=== PATIENT | male | born 1935 | race Caucasian/White ===

== ENCOUNTER 2017-09-01 18:50 | Emergency (ER) | payer MEDICARE, BC ==
[2017-09-01 18:59] VITALS: RESP 18
[2017-09-01] MEDS ORDERED: SODIUM CHLORIDE 0.9% 1,000 ML IV STA ×2 (19:03)
--- NOTE | 2017-09-01 19:03 | ED ---
General Adult HPI - General Chief complaint: Neuro Symptoms/Deficit Stated complaint: Sent by [facility] for poss CVA Time Seen by Provider: 09/01/17 19:02 Source: patient, RN notes reviewed, old records reviewed Mode of arrival: ambulatory Limitations: no limitations - History of Present Illness Initial comments: This is a 81-year-old male to the ER for evaluation. He has a for evaluation regards to headache. patient is sent in after abnormal outpatient studies. states headache for 5 days. no nausea no vomiting. denies any neurological deficit. no prior evaluation for, family doctor did order mr secondary to symptoms. Patient has history of CAD and high cholesterol. Denies any trauma - Related Data Home Medications Medication Instructions Recorded Confirmed Acetaminophen Tab [Tylenol] 650 mg PO Q6H PRN 09/01/17 09/01/17 Aspirin EC [Ecotrin Low Dose] 81 mg PO DAILY 09/01/17 09/01/17 Citalopram Hydrobromide [CeleXA] 10 mg PO DAILY 09/01/17 09/01/17 Esomeprazole Magnesium [NexIUM] 40 mg PO DAILY 09/01/17 09/01/17 diphenhydrAMINE HCL [Benadryl] 25 mg PO Q6H PRN 09/01/17 09/01/17 Allergies Allergy/AdvReac Type Severity Reaction Status Date / Time Sulfa (Sulfonamide Allergy Rash/Hives Verified 09/01/17 19:25 Antibiotics) sulfamethoxazole Allergy Rash/Hives Verified 09/01/17 19:25 [From Bactrim] trimethoprim [From Bactrim] Allergy Rash/Hives Verified 09/01/17 19:25 Review of Systems ROS Statement: Those systems with pertinent positive or pertinent negative responses have been documented in the HPI. ROS Other: All systems not noted in ROS Statement are negative. Past Medical History Past Medical History: Coronary Artery Disease (CAD), GERD/Reflux, Hyperlipidemia History of Any Multi-Drug Resistant Organisms: None Reported Past Surgical History: Cholecystectomy, Coronary Bypass/CABG Additional Past Surgical History / Comment(s): CABG- 2000?, BILAT CATARACTS, SINUS , HEMORRHOIDECTOMY, LOWER BACK SX , COLONOSCOPY. EGD Past Anesthesia/Blood Transfusion Reactions: No Reported Reaction Past Psychological History: No Psychological Hx Reported Smoking Status: Former smoker Past Alcohol Use History: Occasional Past Drug Use History: None Reported - Past Family History Mother Family Medical History: No Reported History General Exam Limitations: no limitations General appearance: alert, in no apparent distress Head exam: Present: atraumatic, normocephalic, normal inspection Eye exam: Present: normal appearance, PERRL, EOMI. Absent: scleral icterus, conjunctival injection, periorbital swelling ENT exam: Present: normal exam, mucous membranes moist Neck exam: Present: normal inspection. Absent: tenderness, meningismus, lymphadenopathy Respiratory exam: Present: normal lung sounds bilaterally. Absent: respiratory distress, wheezes, rales, rhonchi, stridor Cardiovascular Exam: Present: regular rate, normal rhythm, normal heart sounds. Absent: systolic murmur, diastolic murmur, rubs, gallop, clicks GI/Abdominal exam: Present: soft, normal bowel sounds. Absent: distended, tenderness, guarding, rebound, rigid Extremities exam: Present: normal inspection, full ROM, normal capillary refill. Absent: tenderness, pedal edema, joint swelling, calf tenderness Back exam: Present: normal inspection Neurological exam: Present: alert, oriented X3, CN II-XII intact Psychiatric exam: Present: normal affect, normal mood Skin exam: Present: warm, dry, intact, normal color. Absent: rash Course Vital Signs 09/01/17 09/01/17 18:53 20:34 Temperature 98.5 F Pulse Rate 77 70 Respiratory 18 18 Rate Blood Pressure 133/74 152/70 O2 Sat by Pulse 95 97 Oximetry - Reevaluation(s) Reevaluation #1: 09/01/17 19:53 MR brain is reviewed shows subacute stroke as well as likely aneurysm in the [place] of Short Reevaluation #2: 09/01/17 21:09 Spoke with patient at length regarding symptoms findings. No aneurysm was found , patient states he is not want to be admitted to the hospital symptoms are going on for quite some time. He we'll start taking full aspirin and would like to be discharged home EKG Findings - EKG Comments: EKG Findings:: EKG shows sinus rhythm rate of 77, CO 160, QRS 90, QTc 427 Medical Decision Making - Medical Decision Making 81 male the ER for evaluation of abnormal MRI findings. Findings were reported by radiologist, patient had MR brain secondary to headache and was ordered on Monday, had MR today comes ER for follow-up. CTA is resultant no aneurysm, patient has no complaints currently no neurological complaints, would like to be discharged - Lab Data Result diagrams: 09/01/17 19:20 09/01/17 19:20 Lab Results 09/01/17 09/01/17 09/01/17 Range/Units 19:20 19:20 19:20 WBC 5.8 (3.8-10.6) k/uL RBC 4.58 (4.30-5.90) m/uL Hgb 14.7 (13.0-17.5) gm/dL Hct 41.8 (39.0-53.0) % MCV 91.1 (80.0-100.0) fL MCH 32.0 (25.0-35.0) pg MCHC 35.1 (31.0-37.0) g/dL RDW 12.8 (11.5-15.5) % Plt Count 167 (150-450) k/uL Neutrophils % 56 % Lymphocytes % 31 % Monocytes % 6 % Eosinophils % 4 % Basophils % 1 % Neutrophils # 3.2 (1.3-7.7) k/uL Lymphocytes # 1.8 (1.0-4.8) k/uL Monocytes # 0.3 (0-1.0) k/uL Eosinophils # 0.2 (0-0.7) k/uL Basophils # 0.0 (0-0.2) k/uL PT (9.0-12.0) sec INR (<1.2) APTT (22.0-30.0) sec Sodium 137 (137-145) mmol/L Potassium 4.3 (3.5-5.1) mmol/L Chloride 102 (98-107) mmol/L Carbon Dioxide 26 (22-30) mmol/L Anion Gap 9 mmol/L BUN 13 (9-20) mg/dL Creatinine 0.90 (0.66-1.25) mg/dL Est GFR (CKD-EPI)AfAm >90 (>60 ml/min/1.73 sqM) Est GFR (CKD-EPI)NonAf 80 (>60 ml/min/1.73 sqM) Glucose 104 H (74-99) mg/dL Calcium 9.0 (8.4-10.2) mg/dL Phosphorus 3.0 (2.5-4.5) mg/dL Magnesium 2.0 (1.6-2.3) mg/dL Total Bilirubin 0.7 (0.2-1.3) mg/dL AST 23 (17-59) U/L ALT 31 (21-72) U/L Alkaline Phosphatase 61 (38-126) U/L Total Creatine Kinase 128 (55-170) U/L CK-MB (CK-2) 2.4 (0.0-2.4) ng/mL CK-MB (CK-2) Rel Index 1.9 Troponin I <0.012 (0.000-0.034) ng/mL Total Protein 6.8 (6.3-8.2) g/dL Albumin 4.5 (3.5-5.0) g/dL 09/01/17 Range/Units 19:20 WBC (3.8-10.6) k/uL RBC (4.30-5.90) m/uL Hgb (13.0-17.5) gm/dL Hct (39.0-53.0) % MCV (80.0-100.0) fL MCH (25.0-35.0) pg MCHC (31.0-37.0) g/dL RDW (11.5-15.5) % Plt Count (150-450) k/uL Neutrophils % % Lymphocytes % % Monocytes % % Eosinophils % % Basophils % % Neutrophils # (1.3-7.7) k/uL Lymphocytes # (1.0-4.8) k/uL Monocytes # (0-1.0) k/uL Eosinophils # (0-0.7) k/uL Basophils # (0-0.2) k/uL PT 9.8 (9.0-12.0) sec INR 1.0 (<1.2) APTT 24.4 (22.0-30.0) sec Sodium (137-145) mmol/L Potassium (3.5-5.1) mmol/L Chloride (98-107) mmol/L Carbon Dioxide (22-30) mmol/L Anion Gap mmol/L BUN (9-20) mg/dL Creatinine (0.66-1.25) mg/dL Est GFR (CKD-EPI)AfAm (>60 ml/min/1.73 sqM) Est GFR (CKD-EPI)NonAf (>60 ml/min/1.73 sqM) Glucose (74-99) mg/dL Calcium (8.4-10.2) mg/dL Phosphorus (2.5-4.5) mg/dL Magnesium (1.6-2.3) mg/dL Total Bilirubin (0.2-1.3) mg/dL AST (17-59) U/L ALT (21-72) U/L Alkaline Phosphatase (38-126) U/L Total Creatine Kinase (55-170) U/L CK-MB (CK-2) (0.0-2.4) ng/mL CK-MB (CK-2) Rel Index Troponin I (0.000-0.034) ng/mL Total Protein (6.3-8.2) g/dL Albumin (3.5-5.0) g/dL - Radiology Data Radiology results: report reviewed (CT brain CTA shows no aneurysm), image reviewed Disposition Clinical Impression: Cerebrovascular accident, Headache Disposition: HOME SELF-CARE Condition: Good Instructions: General Headache (ED), Ischemic Stroke (DC), Self Care Measures After a Stroke (ED) Is patient prescribed a controlled substance at d/c from ED?: No Referrals: Rich Lee MD [Primary Care Provider] - 1-2 days Jenny Bejarano MD [STAFF PHYSICIAN] - 1-2 days
[2017-09-01 19:30] LABS: Basophils % (A) 1 %; Eosinophils # (A) 0.2 k/uL (0-0.7); Eosinophils % (A) 4 %; HCT 41.8 % (39.0-53.0); HGB 14.7 gm/dL (13.0-17.5); Lymphocytes # (A) 1.8 k/uL (1.0-4.8); Lymphocytes % (A) 31 %; MCHC 35.1 g/dL (31.0-37.0); MCV 91.1 fL (80.0-100.0); Mean Platelet Volume 7.9; Monocytes # (A) 0.3 k/uL (0-1.0); Monocytes % (A) 6 %; Neutrophils # (A) 3.2 k/uL (1.3-7.7); Neutrophils % (A) 56 %; Platelet Count 167 k/uL (150-450); RBC 4.58 m/uL (4.30-5.90); RDW 12.8 % (11.5-15.5); WBC 5.8 k/uL (3.8-10.6)
[2017-09-01 19:42] LABS: ALT 31 U/L (21-72); AST 23 U/L (17-59); Albumin 4.5 g/dL (3.5-5.0); Alkaline Phosphatase 61 U/L (38-126); Anion Gap 9 mmol/L; Blood Urea Nitrogen 13 mg/dL (9-20); Carbon Dioxide 26 mmol/L (22-30); Chloride 102 mmol/L (98-107); Glucose 104 mg/dL (74-99); Potassium 4.3 mmol/L (3.5-5.1); Sodium 137 mmol/L (137-145); Total Bilirubin 0.7 mg/dL (0.2-1.3); Total Protein 6.8 g/dL (6.3-8.2)
[2017-09-01 19:47] LABS: Partial Thromboplastin Time 24.4 sec (22.0-30.0); Prothrombin Time 9.8 sec (9.0-12.0)
[2017-09-01 20:03] LABS: Creatine Kinase 128 U/L (55-170)
[2017-09-01 20:16] LABS: Creatine Kinase MB 2.4 ng/mL (0.0-2.4); Troponin I <0.012 ng/mL (0.000-0.034)
--- NOTE | 2017-09-01 20:38 | CT ---
EXAMINATION TYPE: CT angio COW [place] [facility] DATE OF EXAM: 09/01/2017 8:27 PM COMPARISON: NONE HISTORY: Possible stroke. Weakness CT DLP: mGycm Automated exposure control for dose reduction was used. TECHNIQUE: Multiple axial sections were obtained of the brain with intravenous contrast. The contrast was Isovue 100 mL. There are 3-D post processed images. . FINDINGS: There is arterial flow in the vertebrobasilar artery system. Basilar artery fills mostly from the rig ht side. The left vertebral artery is small. There is arterial flow in the anterior middle and posterior cerebral arteries. I see no evidence of a neurysm or neovascularity. There is arterial flow in both distal internal carotid arteries. There is normal contrast opacification of the venous sinuses. I see no evidence of spasm. This is no sign of h emodynamically significant stenosis. IMPRESSION: NEGATIVE CT ANGIOGRAM OF THE BRAIN.
--- NOTE | 2017-09-01 20:40 | CT ---
EXAMINATION TYPE: CT brain wo con DATE OF EXAM: 09/01/2017 COMPARISON: NONE HISTORY: Possible CVA. Pain. Weakness CT DLP: mGycm Automated exposure control for dose reduction was used. FINDINGS: Ventricles have normal size. There is no mass effect nor midline shift. There is no sign of intracran ial hemorrhage. The calvarium appears intact. There is mucosal thickening in the ethmoid and frontal sinuses. IMPRESSION: SINUSITIS. NEGATIVE CT SCAN OF THE BRAIN. NO EVIDENCE OF CORTICAL INFARCT.
[2017-09-01] MEDS ORDERED: ASPIRIN 81 MG PO STA (21:08)
[2017-09-01 21:41] VITALS: BP 128/74; PULSE 64; TEMP 97.6
== END 2017-09-01 21:50 | disposition home or self-care (01) ==
LOC: EC 18:50
DX: I63.9 Cerebral infarction, unspecified (principal); I25.10 Atherosclerotic heart disease of native coronary artery without angina pectoris; K21.9 Gastro-esophageal reflux disease without esophagitis; Z95.1 Presence of aortocoronary bypass graft; Z88.1 Allergy status to other antibiotic agents; Z88.2 Allergy status to sulfonamides; Z79.82 Long term (current) use of aspirin; Z79.899 Other long term (current) drug therapy; Z87.891 Personal history of nicotine dependence
CPT/HCPCS: 99285 ×2; 96360 ×2; 96361 ×2; 36415; 93005; 80053; 82550; 82553; 83735; 84100; 84484; 85025; 85610; 85730; 70496; 70450; Q9967

== ENCOUNTER 2017-09-05 21:16 | Emergency (ER) | payer MEDICARE, BC ==
[2017-09-05] MEDS ORDERED: SODIUM CHLORIDE 0.9% 500 ML IV STA (21:37)
[2017-09-05 22:01] LABS: Basophils % (A) 0 %; Eosinophils # (A) 0.2 k/uL (0-0.7); Eosinophils % (A) 3 %; HCT 39.9 % (39.0-53.0); HGB 13.7 gm/dL (13.0-17.5); Lymphocytes # (A) 1.7 k/uL (1.0-4.8); Lymphocytes % (A) 29 %; MCH 30.9 pg (25.0-35.0); MCHC 34.2 g/dL (31.0-37.0); MCV 90.5 fL (80.0-100.0); Mean Platelet Volume 8.3; Monocytes # (A) 0.4 k/uL (0-1.0); Monocytes % (A) 7 %; Neutrophils # (A) 3.5 k/uL (1.3-7.7); Neutrophils % (A) 59 %; Platelet Count 155 k/uL (150-450); RBC 4.41 m/uL (4.30-5.90); RDW 12.5 % (11.5-15.5); WBC 5.9 k/uL (3.8-10.6)
--- NOTE | 2017-09-05 22:02 | ED ---
General Adult HPI - General Chief complaint: Nausea/Vomiting/Diarrhea Stated complaint: Abd Pain, headache-had stroke week ago Time Seen by Provider: 09/05/17 21:37 Source: patient, RN notes reviewed, old records reviewed Mode of arrival: ambulatory Limitations: no limitations - History of Present Illness Initial comments: This is a 81-year-old male the ER for evaluation. Patient having multiple complaints today. Patient states he has a headache nausea vomiting with abdominal pain. Patient has history of abdominal surgery, history of CAD and high cholesterol. Patient states he was seen recently for evaluation regarding strokelike symptoms. He has had persistent headache, abdominal pain nausea vomiting that started today since. No fevers or trauma. No modifying factors for symptoms. No known sick contacts or travel history - Related Data Home Medications Medication Instructions Recorded Confirmed Citalopram Hydrobromide [CeleXA] 10 mg PO HS 09/01/17 09/05/17 Esomeprazole Magnesium [NexIUM] 40 mg PO DAILY 09/01/17 09/05/17 Aspirin EC [Ecotrin] 325 mg PO DAILY 09/05/17 09/05/17 Allergies Allergy/AdvReac Type Severity Reaction Status Date / Time Sulfa (Sulfonamide Allergy Rash/Hives Verified 09/05/17 21:37 Antibiotics) sulfamethoxazole Allergy Rash/Hives Verified 09/05/17 21:37 [From Bactrim] trimethoprim [From Bactrim] Allergy Rash/Hives Verified 09/05/17 21:37 Review of Systems ROS Statement: Those systems with pertinent positive or pertinent negative responses have been documented in the HPI. ROS Other: All systems not noted in ROS Statement are negative. Past Medical History Past Medical History: Coronary Artery Disease (CAD), GERD/Reflux, Hyperlipidemia History of Any Multi-Drug Resistant Organisms: None Reported Past Surgical History: Cholecystectomy, Coronary Bypass/CABG Additional Past Surgical History / Comment(s): CABG- 2000?, BILAT CATARACTS, SINUS , HEMORRHOIDECTOMY, LOWER BACK SX , COLONOSCOPY. EGD Past Anesthesia/Blood Transfusion Reactions: No Reported Reaction Past Psychological History: No Psychological Hx Reported Smoking Status: Former smoker Past Alcohol Use History: Occasional Past Drug Use History: None Reported - Past Family History Mother Family Medical History: No Reported History General Exam Limitations: no limitations General appearance: alert, in no apparent distress Head exam: Present: atraumatic, normocephalic, normal inspection Eye exam: Present: normal appearance, PERRL, EOMI. Absent: scleral icterus, conjunctival injection, periorbital swelling ENT exam: Present: normal exam, mucous membranes moist Neck exam: Present: normal inspection. Absent: tenderness, meningismus, lymphadenopathy Respiratory exam: Present: normal lung sounds bilaterally. Absent: respiratory distress, wheezes, rales, rhonchi, stridor Cardiovascular Exam: Present: regular rate, normal rhythm, normal heart sounds. Absent: systolic murmur, diastolic murmur, rubs, gallop, clicks GI/Abdominal exam: Present: soft, normal bowel sounds. Absent: distended, tenderness, guarding, rebound, rigid Extremities exam: Present: normal inspection, full ROM, normal capillary refill. Absent: tenderness, pedal edema, joint swelling, calf tenderness Back exam: Present: normal inspection Neurological exam: Present: alert, oriented X3, CN II-XII intact Psychiatric exam: Present: normal affect, normal mood Skin exam: Present: warm, dry, intact, normal color. Absent: rash Course Vital Signs 09/05/17 21:19 Temperature 97.8 F Pulse Rate 63 Respiratory 16 Rate Blood Pressure 135/86 O2 Sat by Pulse 97 Oximetry - Reevaluation(s) Reevaluation #1: 09/05/17 22:02 Medical record recent ER visits reviewed 09/05/17 22:49 Prior MRI and computed tomography scan are reviewed Reevaluation #2: 09/05/17 22:49 Patient's in no acute distress EKG Findings - EKG Comments: EKG Findings:: EKG shows sinus bradycardia rate of 59, ME 172, QRS 84, QTC 4 Medical Decision Making - Medical Decision Making 81 male the ER for evaluation, positive nausea mild anxiety, continued headache. No acute cause found. Patient can be discharged home - Lab Data Result diagrams: 09/05/17 21:50 09/05/17 21:50 Lab Results 09/05/17 09/05/17 09/05/17 Range/Units 21:50 21:50 21:50 WBC 5.9 (3.8-10.6) k/uL RBC 4.41 (4.30-5.90) m/uL Hgb 13.7 (13.0-17.5) gm/dL Hct 39.9 (39.0-53.0) % MCV 90.5 (80.0-100.0) fL MCH 30.9 (25.0-35.0) pg MCHC 34.2 (31.0-37.0) g/dL RDW 12.5 (11.5-15.5) % Plt Count 155 (150-450) k/uL Neutrophils % 59 % Lymphocytes % 29 % Monocytes % 7 % Eosinophils % 3 % Basophils % 0 % Neutrophils # 3.5 (1.3-7.7) k/uL Lymphocytes # 1.7 (1.0-4.8) k/uL Monocytes # 0.4 (0-1.0) k/uL Eosinophils # 0.2 (0-0.7) k/uL Basophils # 0.0 (0-0.2) k/uL PT (9.0-12.0) sec INR (<1.2) APTT (22.0-30.0) sec Sodium 138 (137-145) mmol/L Potassium 4.2 (3.5-5.1) mmol/L Chloride 102 (98-107) mmol/L Carbon Dioxide 25 (22-30) mmol/L Anion Gap 11 mmol/L BUN 16 (9-20) mg/dL Creatinine 0.90 (0.66-1.25) mg/dL Est GFR (CKD-EPI)AfAm >90 (>60 ml/min/1.73 sqM) Est GFR (CKD-EPI)NonAf 80 (>60 ml/min/1.73 sqM) Glucose 98 (74-99) mg/dL Calcium 9.0 (8.4-10.2) mg/dL Phosphorus 3.3 (2.5-4.5) mg/dL Magnesium 2.2 (1.6-2.3) mg/dL Total Bilirubin 0.6 (0.2-1.3) mg/dL AST 20 (17-59) U/L ALT 30 (21-72) U/L Alkaline Phosphatase 53 (38-126) U/L Total Creatine Kinase 144 (55-170) U/L CK-MB (CK-2) 2.3 (0.0-2.4) ng/mL CK-MB (CK-2) Rel Index 1.6 Troponin I <0.012 (0.000-0.034) ng/mL Total Protein 6.4 (6.3-8.2) g/dL Albumin 4.2 (3.5-5.0) g/dL Urine Color Urine Appearance (Clear) Urine pH (5.0-8.0) Ur Specific [place] (1.001-1.035) Urine Protein (Negative) Urine Glucose (UA) (Negative) Urine Ketones (Negative) Urine Blood (Negative) Urine Nitrite (Negative) Urine Bilirubin (Negative) Urine Urobilinogen (<2.0) mg/dL Ur Leukocyte Esterase (Negative) 09/05/17 09/05/17 Range/Units 21:50 22:16 WBC (3.8-10.6) k/uL RBC (4.30-5.90) m/uL Hgb (13.0-17.5) gm/dL Hct (39.0-53.0) % MCV (80.0-100.0) fL MCH (25.0-35.0) pg MCHC (31.0-37.0) g/dL RDW (11.5-15.5) % Plt Count (150-450) k/uL Neutrophils % % Lymphocytes % % Monocytes % % Eosinophils % % Basophils % % Neutrophils # (1.3-7.7) k/uL Lymphocytes # (1.0-4.8) k/uL Monocytes # (0-1.0) k/uL Eosinophils # (0-0.7) k/uL Basophils # (0-0.2) k/uL PT 10.1 (9.0-12.0) sec INR 1.0 (<1.2) APTT 25.2 (22.0-30.0) sec Sodium (137-145) mmol/L Potassium (3.5-5.1) mmol/L Chloride (98-107) mmol/L Carbon Dioxide (22-30) mmol/L Anion Gap mmol/L BUN (9-20) mg/dL Creatinine (0.66-1.25) mg/dL Est GFR (CKD-EPI)AfAm (>60 ml/min/1.73 sqM) Est GFR (CKD-EPI)NonAf (>60 ml/min/1.73 sqM) Glucose (74-99) mg/dL Calcium (8.4-10.2) mg/dL Phosphorus (2.5-4.5) mg/dL Magnesium (1.6-2.3) mg/dL Total Bilirubin (0.2-1.3) mg/dL AST (17-59) U/L ALT (21-72) U/L Alkaline Phosphatase (38-126) U/L Total Creatine Kinase (55-170) U/L CK-MB (CK-2) (0.0-2.4) ng/mL CK-MB (CK-2) Rel Index Troponin I (0.000-0.034) ng/mL Total Protein (6.3-8.2) g/dL Albumin (3.5-5.0) g/dL Urine Color Light Yellow Urine Appearance Clear (Clear) Urine pH 6.0 (5.0-8.0) Ur Specific [place] 1.005 (1.001-1.035) Urine Protein Negative (Negative) Urine Glucose (UA) Negative (Negative) Urine Ketones Negative (Negative) Urine Blood Negative (Negative) Urine Nitrite Negative (Negative) Urine Bilirubin Negative (Negative) Urine Urobilinogen <2.0 (<2.0) mg/dL Ur Leukocyte Esterase Negative (Negative) - Radiology Data Radiology results: report reviewed (CT brain is negative for acute disease), image reviewed Disposition Clinical Impression: Headache, Nausea, Anxiety Disposition: HOME SELF-CARE Condition: Good Instructions: Acute Nausea and Vomiting (ED) Is patient prescribed a controlled substance at d/c from ED?: No Referrals: Rich Lee MD [Primary Care Provider] - 1-2 days
[2017-09-05 22:11] LABS: Anion Gap 11 mmol/L; Blood Urea Nitrogen 16 mg/dL (9-20); Carbon Dioxide 25 mmol/L (22-30); Chloride 102 mmol/L (98-107); Glucose 98 mg/dL (74-99); Potassium 4.2 mmol/L (3.5-5.1); Sodium 138 mmol/L (137-145)
[2017-09-05 22:12] LABS: ALT 30 U/L (21-72); AST 20 U/L (17-59); Albumin 4.2 g/dL (3.5-5.0); Alkaline Phosphatase 53 U/L (38-126); Magnesium 2.2 mg/dL (1.6-2.3); Partial Thromboplastin Time 25.2 sec (22.0-30.0); Phosphorus 3.3 mg/dL (2.5-4.5); Prothrombin Time 10.1 sec (9.0-12.0); Total Bilirubin 0.6 mg/dL (0.2-1.3); Total Protein 6.4 g/dL (6.3-8.2)
[2017-09-05 22:19] LABS: Creatine Kinase 144 U/L (55-170)
[2017-09-05 22:25] LABS: Appearance,Urine Clear (Clear); Bilirubin,Urine Negative (Negative); Blood,Urine Negative (Negative); Color,Urine Light Yellow; Glucose,Urine (UA) Negative (Negative); Ketones,Urine Negative (Negative); Leukocyte Esterase,Urine Negative (Negative); Nitrite,Urine Negative (Negative); Protein,Urine Negative (Negative); Specific Gravity,Urine 1.005 (1.001-1.035); Urobilinogen,Urine <2.0 mg/dL (<2.0)
[2017-09-05 22:33] LABS: Creatine Kinase MB 2.3 ng/mL (0.0-2.4); Troponin I <0.012 ng/mL (0.000-0.034)
--- NOTE | 2017-09-05 22:44 | CT ---
EXAMINATION TYPE: CT brain wo con DATE OF EXAM: 09/05/2017 COMPARISON: 09/01/2017 HISTORY: Weakness and right sided headache. History of stroke. CT DLP: 1024.2 mGycm Automated exposure control for dose reduction was used. FINDINGS: There is mild cerebral cortical atrophy. There is no mass effect nor midline shift. There is no sign of intracranial hemorrhage. The calvarium is intact. There is mild mucosal thickening in the ethmoid sinuses. IMPRESSION: MILD ATROPHY. NO ACUTE INTRACRANIAL ABNORMALITY. ETHMOID SINUSITIS. NO CHANGE.
[2017-09-05] MEDS ORDERED: ONDANSETRON 4 MG/2 ML VIAL IVP STA (22:48)
[2017-09-05 23:24] VITALS: BP 143/81; PULSE 60; RESP 19; TEMP 97.7
== END 2017-09-05 23:18 | disposition home or self-care (01) ==
LOC: EC 21:16
DX: R51 Headache (principal); R11.2 Nausea with vomiting, unspecified; R10.9 Unspecified abdominal pain; F41.9 Anxiety disorder, unspecified; I25.10 Atherosclerotic heart disease of native coronary artery without angina pectoris; K21.9 Gastro-esophageal reflux disease without esophagitis; E78.5 Hyperlipidemia, unspecified; Z90.49 Acquired absence of other specified parts of digestive tract; Z95.1 Presence of aortocoronary bypass graft; Z88.1 Allergy status to other antibiotic agents; Z88.2 Allergy status to sulfonamides; Z79.82 Long term (current) use of aspirin; Z79.899 Other long term (current) drug therapy; Z87.891 Personal history of nicotine dependence
CPT/HCPCS: 99285; 96374; 96361; 36415; 93005; 80053; 82550; 82553; 83735; 84100; 84484; 85025; 85610; 85730; 81003; 87086; 70450; J2405

== ENCOUNTER → 2017-10-05 | Outpatient (CLI) | payer MEDICARE, BC ==
--- NOTE | 2017-10-05 14:38 | CT ---
EXAMINATION TYPE: CT sinus wo con DATE OF EXAM: 10/05/2017 COMPARISON: None HISTORY: 81-year-old male chronic sinusitis CT DLP: 654.4 mGycm Automated exposure control for dose reduction was used. TECHNIQUE: Noncontrast axial views of the paranasal sinuses were obtained. Coronal reconstructions pe rformed. FINDINGS: Prior sinonasal surgery with large bilateral maxillary antrectomies. There is trace mucosal thickening along the roofs of the maxillary sinuses. More moderate mucosal thickening anterior right ethmoid air cells and right frontal sinus. Small omar unt of hyperdense material within the right frontal sinus. The left frontal sinus, left ethmoid air cells, and bilateral sphenoid sinuses are well pneumatized. There is no air-fluid level. Reactive sonali- osteogenesis is not seen. There is no destruction of the osseous [place] of the paranasal sinuses. Slight rightward nasal septal deviation. The imaged brain and orbits are normal in appearance. Visualized mastoid air cells and middle ear cavities are well pneumatized. Reformatted images confirm above findings. IMPRESSION: 1. Prior FESS with large medial antrectomies. 2. Mild mucosal thickening along the roofs of the maxillary sinuses. 3. More moderate to severe chronic sinus disease involving the anterior right ethmoid air cells and r ight frontal sinus. Some hyperdense material in the right frontal sinus could represent inspissated m ucus or superimposed aspergillus infection. 3. Rightward nasal septal deviation.
== END | disposition home or self-care (01) ==
LOC: RADCTMAIN 13:32
PROVIDERS: ATTEND Otolaryngology
DX: J32.0 Chronic maxillary sinusitis (principal); J32.1 Chronic frontal sinusitis; J32.2 Chronic ethmoidal sinusitis; J34.2 Deviated nasal septum; Z98.890 Other specified postprocedural states
CPT/HCPCS: 70486

== ENCOUNTER → 2018-06-13 | Outpatient (CLI) | payer MEDICARE, BC ==
--- NOTE | 2018-06-13 15:35 | CT ---
EXAMINATION TYPE: CT abdomen pelvis w con DATE OF EXAM: 06/13/2018 COMPARISON: None HISTORY: Abdominal pain x1 month CT DLP: 612.4 mGycm Automated exposure control for dose reduction was used. TECHNIQUE: Helical acquisition of images was performed from the lung bases through the pelvis. CONTRAST: Performed with Oral Contrast and with IV Contrast, patient injected with 100 mL of Isovue 300. FINDINGS: LUNG BASES: Bandlike pleural parenchymal scarring is seen at the right lung base and to a lesser degr ee within the lingula LIVER/GB: 3 mm hypoattenuated hepatic lesion is seen in the hepatic dome on series 7 image 36 and ser ies 3 image 7. This is too small to accurately characterize. No additional focal hepatic lesion nor s ignificant intrahepatic biliary ductal dilatation. Gallbladder surgically absent. PANCREAS: No significant abnormality is seen. SPLEEN: No significant abnormality is seen. ADRENALS: No significant abnormality is seen. KIDNEYS: The kidneys enhance and excrete symmetrically other than 2 small to accurately characterize bilateral renal lesions that are subcentimeter. FREE AIR: No free air is visualized. REPRODUCTIVE ORGANS: Resting clinic is enlarged measuring at least 5.1 cm. URINARY BLADDER: Incompletely evaluated on CT and nearly nondistended. ADENOPATHY: No greater than 1 cm short axis lymph node is seen in the abdomen or pelvis. OSSEOUS STRUCTURES: Healed fracture deformity of the right inferior pubic ramus and superior periphe ry mass abutting the pubic symphysis is present. Postsurgical changes of the lumbar spine are seen. T here is mild retrolisthesis of L2 on L3 and grade 1 anterolisthesis of L4 on L5. BOWEL: Moderate degree colonic stool burden is present. There is slight periappendiceal haziness how ever appendix is within normal limits size and similar to prior exams. 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 IMPRESSION: NO CT FINDING TO CORRESPOND TO THE PATIENT'S EPIGASTRIC PAIN. MODERATE DEGREE FECAL STASIS IS PRESEN T INDICATING INCREASED TRANSIT TIME. NO BOWEL OBSTRUCTION.
== END | disposition home or self-care (01) ==
LOC: RADCTMAIN 12:52
PROVIDERS: ATTEND Internal Medicine
DX: R19.5 Other fecal abnormalities (principal); R10.13 Epigastric pain
CPT/HCPCS: 74177; Q9967

== ENCOUNTER 2019-02-21 05:58 | Emergency (ER) | payer MEDICARE, BC ==
[2019-02-21] MEDS ORDERED: SODIUM CHLORIDE 0.9% 500 ML 500 ML IV STA (06:11)
[2019-02-21] MEDS ORDERED: MECLIZINE 12.5 MG TAB PO STA (06:12)
--- NOTE | 2019-02-21 06:25 | ED ---
Dizziness HPI - General Chief Complaint: Dizziness Stated Complaint: Dizzy,fall Time Seen by Provider: 02/21/19 06:02 Source: patient, family, EMS, RN notes reviewed Mode of arrival: EMS Limitations: no limitations - History of Present Illness Initial Comments: 83-year-old male presents emergency Department chief complaint of dizziness, near syncope. Patient reportedly got up to the bathroom states he felt very unsteady, dizzy states that he started to follow over fell into the bedroom are more states that he did lacerate his right arm his tetanus is up-to-date last 5 years. There was no head injury at this time. He states that he sat down and got up again had recurrence of this episode. Patient's states that he nearly fell over but she caught him. She felt that he may have passed out for a brief second. Patient has no specific complaints at this time denies any chest pain or shortness breath he does complain of mild headache. Denies any focal weakness or paresthesias. Patient states that he's had bypass in the past currently just takes Nexium and a full dose aspirin. Patient has no complaints of nausea vomiting abdominal pain - Related Data Home Medications Medication Instructions Recorded Confirmed Citalopram Hydrobromide [CeleXA] 10 mg PO HS 09/01/17 09/05/17 Esomeprazole Magnesium [NexIUM] 40 mg PO DAILY 09/01/17 09/05/17 Aspirin EC [Ecotrin] 325 mg PO DAILY 09/05/17 09/05/17 Allergies Allergy/AdvReac Type Severity Reaction Status Date / Time Sulfa (Sulfonamide Allergy Rash/Hives Verified 02/21/19 06:09 Antibiotics) sulfamethoxazole Allergy Rash/Hives Verified 02/21/19 06:09 [From Bactrim] trimethoprim [From Bactrim] Allergy Rash/Hives Verified 02/21/19 06:09 Review of Systems ROS Statement: Those systems with pertinent positive or pertinent negative responses have been documented in the HPI. ROS Other: All systems not noted in ROS Statement are negative. Past Medical History Past Medical History: Coronary Artery Disease (CAD), GERD/Reflux, Hyperlipidemia History of Any Multi-Drug Resistant Organisms: None Reported Past Surgical History: Cholecystectomy, Coronary Bypass/CABG Additional Past Surgical History / Comment(s): CABG- 2000?, BILAT CATARACTS, SINUS , HEMORRHOIDECTOMY, LOWER BACK SX , COLONOSCOPY. EGD Past Anesthesia/Blood Transfusion Reactions: No Reported Reaction Past Psychological History: No Psychological Hx Reported Smoking Status: Former smoker Past Alcohol Use History: Occasional Past Drug Use History: None Reported - Past Family History Mother Family Medical History: No Reported History General Exam Limitations: no limitations General appearance: alert, in no apparent distress Head exam: Present: atraumatic, normocephalic, normal inspection Eye exam: Present: normal appearance, PERRL, EOMI. Absent: scleral icterus, conjunctival injection, periorbital swelling ENT exam: Present: normal exam, normal oropharynx, mucous membranes moist Neck exam: Present: normal inspection, full ROM. Absent: tenderness, meningismus, lymphadenopathy Respiratory exam: Present: normal lung sounds bilaterally. Absent: respiratory distress, wheezes, rales, rhonchi, stridor Cardiovascular Exam: Present: normal rhythm, bradycardia, normal heart sounds. Absent: systolic murmur, diastolic murmur, rubs, gallop, clicks GI/Abdominal exam: Present: soft, normal bowel sounds. Absent: distended, tenderness, guarding, rebound, rigid Extremities exam: Present: other (Right forearm there is approximately 2 cm skin tear) Neurological exam: Present: alert, oriented X3, CN II-XII intact, reflexes normal, other (Finger to nose intact). Absent: motor sensory deficit Skin exam: Present: warm, dry, intact, normal color. Absent: rash Course Vital Signs 02/21/19 02/21/19 02/21/19 06:00 06:55 08:38 Temperature 97.8 F 98.2 F Pulse Rate 56 L 70 Pulse Rate [ 58 L Sitting] Pulse Rate [ 64 Standing] Pulse Rate [ 58 L Supine] Respiratory 20 16 Rate Blood Pressure 157/83 158/88 Blood Pressure 161/88 [Sitting] Blood Pressure 157/83 [Standing] Blood Pressure 155/84 [Supine] O2 Sat by Pulse 97 96 Oximetry EKG Findings - EKG Comments: EKG Findings:: EKG is performed at 6:05 sinus bradycardia nonspecific T-wave changes, rate of 57 AR 204 QRS 94 QT/QTC 418/46 there are no acute changes from prior EKG. Medical Decision Making - Medical Decision Making Patient's lab, CT x-ray unremarkable. Patient has no current dizziness. Patient was able to family on the emergency department with no difficulty feels comfortable discharged return parameters were discussed. Patient discharged in stable condition. - Lab Data Result diagrams: 02/21/19 06:15 02/21/19 06:15 Lab Results 02/21/19 02/21/19 02/21/19 Range/Units 06:15 06:15 06:15 WBC 4.7 (3.8-10.6) k/uL RBC 4.59 (4.30-5.90) m/uL Hgb 14.7 (13.0-17.5) gm/dL Hct 42.6 (39.0-53.0) % MCV 92.8 (80.0-100.0) fL MCH 32.1 (25.0-35.0) pg MCHC 34.6 (31.0-37.0) g/dL RDW 12.3 (11.5-15.5) % Plt Count 156 (150-450) k/uL Neutrophils % 53 % Lymphocytes % 34 % Monocytes % 7 % Eosinophils % 3 % Basophils % 1 % Neutrophils # 2.5 (1.3-7.7) k/uL Lymphocytes # 1.6 (1.0-4.8) k/uL Monocytes # 0.3 (0-1.0) k/uL Eosinophils # 0.1 (0-0.7) k/uL Basophils # 0.0 (0-0.2) k/uL Sodium 140 (137-145) mmol/L Potassium 4.3 (3.5-5.1) mmol/L Chloride 104 (98-107) mmol/L Carbon Dioxide 28 (22-30) mmol/L Anion Gap 8 mmol/L BUN 24 H (9-20) mg/dL Creatinine 0.93 (0.66-1.25) mg/dL Est GFR (CKD-EPI)AfAm 88 (>60 ml/min/1.73 sqM) Est GFR (CKD-EPI)NonAf 76 (>60 ml/min/1.73 sqM) Glucose 93 (74-99) mg/dL Calcium 9.0 (8.4-10.2) mg/dL Total Bilirubin 1.3 (0.2-1.3) mg/dL AST 21 (17-59) U/L ALT 25 (21-72) U/L Alkaline Phosphatase 45 (38-126) U/L Troponin I <0.012 (0.000-0.034) ng/mL Total Protein 6.8 (6.3-8.2) g/dL Albumin 4.1 (3.5-5.0) g/dL Urine Color Urine Appearance (Clear) Urine pH (5.0-8.0) Ur Specific [place] (1.001-1.035) Urine Protein (Negative) Urine Glucose (UA) (Negative) Urine Ketones (Negative) Urine Blood (Negative) Urine Nitrite (Negative) Urine Bilirubin (Negative) Urine Urobilinogen (<2.0) mg/dL Ur Leukocyte Esterase (Negative) 02/21/19 Range/Units 07:32 WBC (3.8-10.6) k/uL RBC (4.30-5.90) m/uL Hgb (13.0-17.5) gm/dL Hct (39.0-53.0) % MCV (80.0-100.0) fL MCH (25.0-35.0) pg MCHC (31.0-37.0) g/dL RDW (11.5-15.5) % Plt Count (150-450) k/uL Neutrophils % % Lymphocytes % % Monocytes % % Eosinophils % % Basophils % % Neutrophils # (1.3-7.7) k/uL Lymphocytes # (1.0-4.8) k/uL Monocytes # (0-1.0) k/uL Eosinophils # (0-0.7) k/uL Basophils # (0-0.2) k/uL Sodium (137-145) mmol/L Potassium (3.5-5.1) mmol/L Chloride (98-107) mmol/L Carbon Dioxide (22-30) mmol/L Anion Gap mmol/L BUN (9-20) mg/dL Creatinine (0.66-1.25) mg/dL Est GFR (CKD-EPI)AfAm (>60 ml/min/1.73 sqM) Est GFR (CKD-EPI)NonAf (>60 ml/min/1.73 sqM) Glucose (74-99) mg/dL Calcium (8.4-10.2) mg/dL Total Bilirubin (0.2-1.3) mg/dL AST (17-59) U/L ALT (21-72) U/L Alkaline Phosphatase (38-126) U/L Troponin I (0.000-0.034) ng/mL Total Protein (6.3-8.2) g/dL Albumin (3.5-5.0) g/dL Urine Color Yellow Urine Appearance Clear (Clear) Urine pH 7.0 (5.0-8.0) Ur Specific [place] 1.015 (1.001-1.035) Urine Protein Negative (Negative) Urine Glucose (UA) Negative (Negative) Urine Ketones Negative (Negative) Urine Blood Negative (Negative) Urine Nitrite Negative (Negative) Urine Bilirubin Negative (Negative) Urine Urobilinogen <2.0 (<2.0) mg/dL Ur Leukocyte Esterase Negative (Negative) Disposition Clinical Impression: Dizziness, Near syncope Disposition: HOME SELF-CARE Condition: Stable Instructions (If sedation given, give patient instructions): Dizziness (ED) Additional Instructions: Please return to the Emergency Department if symptoms worsen or any other concerns. Is patient prescribed a controlled substance at d/c from ED?: No Referrals: Rich Lee MD [Primary Care Provider] - 1-2 days Time of Disposition: 08:44
[2019-02-21 06:33] LABS: Basophils % (A) 1 %; Eosinophils # (A) 0.1 k/uL (0-0.7); Eosinophils % (A) 3 %; HCT 42.6 % (39.0-53.0); HGB 14.7 gm/dL (13.0-17.5); Lymphocytes # (A) 1.6 k/uL (1.0-4.8); Lymphocytes % (A) 34 %; MCH 32.1 pg (25.0-35.0); MCHC 34.6 g/dL (31.0-37.0); MCV 92.8 fL (80.0-100.0); Mean Platelet Volume 7.4; Monocytes # (A) 0.3 k/uL (0-1.0); Monocytes % (A) 7 %; Neutrophils # (A) 2.5 k/uL (1.3-7.7); Neutrophils % (A) 53 %; Platelet Count 156 k/uL (150-450); RBC 4.59 m/uL (4.30-5.90); RDW 12.3 % (11.5-15.5); WBC 4.7 k/uL (3.8-10.6)
--- NOTE | 2019-02-21 06:43 | CT ---
EXAMINATION TYPE: CT brain wo con DATE OF EXAM: 02/21/2019 COMPARISON: 09/05/2017 HISTORY: Dizziness, Fall CT DLP: 1204.4 mGycm Automated exposure control for dose reduction was used. Ventricles have normal size. There is no mass effect nor midline shift. There is no sign of intracran ial hemorrhage. Calvarium is intact. There is mild cerebral atrophy. IMPRESSION: Head CT scan appears normal for age.
--- NOTE | 2019-02-21 06:44 | XR ---
EXAMINATION TYPE: XR chest 2V DATE OF EXAM: 02/21/2019 COMPARISON: NONE HISTORY: Dizziness TECHNIQUE: Frontal and lateral views of the chest are obtained. FINDINGS: Heart is normal. Lungs are clear of infiltrate. There is no pleural effusion. There are st ernal wires. There are chest leads. Costophrenic angles are clear. IMPRESSION: No active cardiopulmonary disease. Normal heart.
[2019-02-21 06:57] LABS: Albumin 4.1 g/dL (3.5-5.0); Potassium 4.3 mmol/L (3.5-5.1); Total Bilirubin 1.3 mg/dL (0.2-1.3); Total Protein 6.8 g/dL (6.3-8.2)
[2019-02-21 07:49] LABS: Appearance,Urine Clear (Clear); Bilirubin,Urine Negative (Negative); Blood,Urine Negative (Negative); Color,Urine Yellow; Glucose,Urine (UA) Negative (Negative); Ketones,Urine Negative (Negative); Leukocyte Esterase,Urine Negative (Negative); Nitrite,Urine Negative (Negative); Protein,Urine Negative (Negative); Specific Gravity,Urine 1.015 (1.001-1.035); Urobilinogen,Urine <2.0 mg/dL (<2.0)
[2019-02-21 08:40] VITALS: RESP 16
[2019-02-21 09:11] VITALS: BP 157/89; PULSE 59; TEMP 97.7
== END 2019-02-21 09:11 | disposition home or self-care (01) ==
LOC: EC 05:58
DX: R42 Dizziness and giddiness (principal); R55 Syncope and collapse; S51.811A Laceration without foreign body of right forearm, initial encounter; I25.10 Atherosclerotic heart disease of native coronary artery without angina pectoris; K21.9 Gastro-esophageal reflux disease without esophagitis; Z95.1 Presence of aortocoronary bypass graft; Z87.891 Personal history of nicotine dependence; Z79.82 Long term (current) use of aspirin; Z79.899 Other long term (current) drug therapy; Z88.2 Allergy status to sulfonamides; W01.0XXA Fall on same level from slipping, tripping and stumbling without subsequent striking against object, initial encounter; Y92.009 Unspecified place in unspecified non-institutional (private) residence as the place of occurrence of the external cause
CPT/HCPCS: 36415; 70450; 71046; 80053; 81003; 84484; 85025; 93005; 99285

== ENCOUNTER → 2020-12-04 | Outpatient (CLI) | payer MEDICARE, BC ==
--- NOTE | 2020-12-04 11:30 | MR ---
EXAMINATION TYPE: MR iac wo/w con DATE OF EXAM: 12/04/2020 COMPARISON: CT brain 02/21/2019 HISTORY: Lt side hearing loss, tinnitus TECHNIQUE: Multiplanar, multisequence images of the brain and brainstem is performed without and with IV contras t, utilizing 8 mL intravenous Gadavist, small [id number] and high resolution images obtained throu gh the regions of the internal auditory canals. FINDINGS: There is some motion, artifact on the exam Diffusion weighted images demonstrate no evidenc e of a recent infarct or other diffusion abnormality. There is no extra-axial fluid collection. Con fluent and scattered hyperintensities are present on inversion recovery in the pericallosal, perivent ricular, subcortical white matter. The ventricular system and cisternal spaces are normal in size and appearance. The brain volume is age appropriate, age-related atrophy is suspected. Cerebellopontine angles are within normal limits. There is no internal auditory canal mass. Midline structures demonstrate normal morphology. The craniocervical junction appears within normal limits. Post contrast images demonstrate no abnormal enhancement. The dural venous sinuses appear pa tent. The visualized sinuses are clear and the globes are intact. IMPRESSION: Normal internal auditory canals. Age-related changes of atrophy and probable chronic smal l vessel ischemia.
== END | disposition home or self-care (01) ==
LOC: RADMRIMAIN 08:52
PROVIDERS: ATTEND Otolaryngology
DX: H91.92 Unspecified hearing loss, left ear (principal); H93.12 Tinnitus, left ear
CPT/HCPCS: 70553; A9585

== ENCOUNTER → 2021-09-10 | Outpatient (CLI) | payer MEDICARE, BC ==
--- NOTE | 2021-09-10 16:42 | CT ---
EXAMINATION TYPE: CT iac wo con DATE OF EXAM: 09/10/2021 COMPARISON: CT brain 02/21/2019 MR 12/04/2020 HISTORY: Patient age:Male; 85 years old; Reason for study: Left-sided H93.19 tinnitus H91.90 hearing loss; CT DLP: 263mGycm Automated exposure control for dose reduction was used. TECHNIQUE: Multiple thin axial images were obtained through the temporal bones and internal auditory canals. Additional coronal reformatted images were obtained. No IV contrast was utilized. FINDINGS: Right Temporal Bone: External Ear: The external auditory canal is unremarkable, The tympanic membrane is present and unrem arkable. Middle Ear: The ossicles demonstrate a normal appearance. Prussak's space is clear and the scutum i s intact. There is no evidence of osseous erosion and the tegmen tympani is intact. Inner Ear: Cochlea, vestibule and semi circular canals are unremarkable. No evidence of carotid rio l dehiscence. Two and a half turns of the cochlea are identified. The vestibular aqueduct is not enl arged. Mastoid Air Cells: The mastoid air cells are clear. The tegmen mastoideum is intact. The aditus ad an trum is clear. Internal Auditory Canal: The internal auditory canal is unremarkable. Left Temporal Bone: External Ear: The external auditory canal is unremarkable, The tympanic membrane is present and unrem arkable. Middle Ear: The ossicles demonstrate a normal appearance. Prussak's space is clear and the scutum i s intact. There is no evidence of osseous erosion and the tegmen tympani is intact. Inner Ear: Cochlea, vestibule and semi circular canals are unremarkable. No evidence of carotid rio l dehiscence. Two and a half turns of the cochlea are identified. The vestibular aqueduct is not enl arged. Mastoid Air Cells: The mastoid air cells are clear. The tegmen mastoideum is intact. The aditus ad an trum is clear. Internal Auditory Canal: The internal auditory canal is unremarkable. Other: Atherosclerosis of intracranial vasculature. Disc degeneration changes throughout the visualiz ed spine. IMPRESSION: Normal internal auditory canal study.
== END | disposition home or self-care (01) ==
LOC: RADCTMAIN 11:27
PROVIDERS: ATTEND Otolaryngology
DX: H93.12 Tinnitus, left ear (principal)
CPT/HCPCS: 70480

== ENCOUNTER → 2024-06-05 | Outpatient (CLI) | payer MEDICARE, BC ==
--- NOTE | 2024-06-05 14:32 | CT ---
EXAMINATION TYPE: CT abdomen pelvis wo con CT DLP: 423.7 mGycm, Automated exposure control for dose reduction was used. DATE OF EXAM: 06/05/2024 1:56 PM COMPARISON: CT abdomen pelvis 06/13/2018 CLINICAL INDICATION:Male, 88 years old with history of R10.9 UNSPECIFIED ABDOMINAL PAIN; lower anteri or abdominal pain TECHNIQUE: Standard CT of the abdomen and pelvis following the administration of oral contrast. Cor onal and sagittal reformats were performed. FINDINGS: Evaluation is limited due to lack of intravenous contrast. LOWER CHEST: Right lower lobe linear scarring. Aortic valvular and mitral annulus calcifications. Cor onary artery calcifications. ABDOMEN LIVER: Couple of scattered subcentimeter hypodense foci which are too small to accurately characteriz e but likely represent cysts. GALLBLADDER AND BILE DUCTS: The gallbladder is surgically absent. Expected mild extra hepatic biliary ductal dilatation related to cholecystectomy. No significant intrahepatic biliary ductal dilatation. PANCREAS: Unremarkable noncontrast appearance. SPLEEN: Unremarkable noncontrast appearance. ADRENAL GLANDS: Unremarkable noncontrast appearance.. KIDNEYS AND URETERS: No evidence of hydronephrosis or renal calculus. PELVIS BLADDER: Incompletely distended but grossly unremarkable. REPRODUCTIVE: Unremarkable noncontrast appearance. ABDOMEN & PELVIS STOMACH AND BOWEL: Residual enteric contrast within the distal esophagus. Stomach and duodenum are un remarkable. Redundant sigmoid colon. Mild to moderate stool is present within the colon. No focal bow el wall thickening or surrounding inflammatory changes. The appendix is within normal limits. Enteric contrast reaches the mid small bowel. Small bowel feces sign identified. No evidence of bowel obstru ction. PERITONEUM: No evidence of pneumoperitoneum or free fluid. VASCULATURE: Mild atherosclerotic calcifications are present throughout the abdominal aorta and its b ranches. No evidence of aortic aneurysm. Ectasia of the infrarenal distal abdominal aorta measuring u p to 2.9 cm. Multiple pelvic phleboliths. MUSCULOSKELETAL: No acute osseous abnormalities. Median sternotomy wires. Multilevel degenerative francheska nges of the visualized spine. Postsurgical changes of the lumbar spine and L3-L5 with bilateral pedic ular screws and rods with disc spacers. Fixed grade 1 anterolisthesis of L4 on L5. Advanced degenerat richard disc disease at L2-L3 with mild retrolisthesis. Bilateral SI joint degenerative changes with ante rior bridging. Remote healed right anterior and inferior pubic rami fractures. LYMPH NODES: No gross evidence for lymphadenopathy. SOFT TISSUE/ABDOMINAL WALL: Unremarkable IMPRESSION: Small bowel feces sign without dilated small bowel suggesting slow bowel transit. No evidence for obs truction. [facility], , 06/05/2024 2:29 PM
== END | disposition home or self-care (01) ==
LOC: RADCTMAIN 11:56
PROVIDERS: ATTEND Internal Medicine Geriatric Medicine
DX: R10.9 Unspecified abdominal pain (principal); I70.0 Atherosclerosis of aorta
CPT/HCPCS: 74176

== ENCOUNTER → 2024-06-12 | Outpatient (CLI) | payer MEDICARE, BC ==
[2024-06-12 18:41] LABS: ALT 21 U/L (10-49); AST 24 U/L (14-35); Albumin 4.5 g/dL (3.8-4.9); Albumin/Globulin Ratio 2.25 Ratio (1.60-3.17); Alkaline Phosphatase 41 U/L (41-126); BUN/Creat Ratio 23.85 Ratio (12.00-20.00); Calcium 9.5 mg/dL (8.7-10.3); Carbon Dioxide 27.8 mmol/L (21.6-31.8); Chloride 105 mmol/L (96-109); Glucose 116 mg/dL (70-110); Potassium 4.8 mmol/L (3.5-5.5); Sodium 141 mmol/L (135-145); Total Bilirubin 0.6 mg/dL (0.3-1.2); Total Protein 6.5 g/dL (6.2-8.2)
[2024-06-12 19:09] LABS: Basophils # (A) 0.03 X 10*3/uL (0.00-0.10); Basophils % (A) 0.7 %; Eosinophils # (A) 0.04 X 10*3/uL (0.04-0.35); Eosinophils % (A) 0.9 %; HCT 42.5 % (39.6-50.0); HGB 13.8 g/dL (13.0-17.0); Lymphocytes # (A) 1.34 X 10*3/uL (0.90-5.00); Lymphocytes % (A) 30.6 %; MCH 31.3 pg (27.0-32.0); MCHC 32.5 g/dL (32.0-37.0); MCV 96.4 FL (80.0-97.0); Mean Platelet Volume 11.9 FL (9.5-12.2); Monocytes % (A) 11.4 %; NRBC Per 100 WBC 0 X 10*3/uL (0.00-0.01); Neutrophils # (A) 2.46 X 10*3/uL (1.80-7.70); Neutrophils % (A) 56.2 %; Platelet Count 160 X 10*3/uL (140-440); RBC 4.41 X 10*6/uL (4.40-5.60); RDW 12.3 % (11.5-14.5); WBC 4.38 X 10*3/uL (4.50-10.00)
== END | disposition home or self-care (01) ==
LOC: LABWHC1 13:43
PROVIDERS: ATTEND Internal Medicine Gastroenterology
DX: K52.9 Noninfective gastroenteritis and colitis, unspecified (principal)
CPT/HCPCS: 36415; 80053; 83516; 85025